=== PATIENT | female | born 1965 | race Caucasian/White ===

== ENCOUNTER 2022-02-17 07:37 | Emergency (ER) | payer OTHER ==
[~2022-02-17] VITALS: Ht 162.6 cm; Wt 51.3 kg
== END 2022-02-17 12:41 | disposition home or self-care (01) ==
LOC: ER 07:37
DX: M94.0 Chondrocostal junction syndrome [Tietze] (principal)

== ENCOUNTER 2023-01-26 03:42 | Emergency (ER) | payer OTHER ==
[~2023-01-26] VITALS: Ht 162.6 cm; Wt 53.1 kg
[2023-01-26] MEDS ORDERED: AMLODIPINE-OLM1 EAC2 PO (04:05)
[2023-01-26 06:46] LABS: HEMATOCRIT 40.5 % (36.0-45.00); HEMOGLOBIN 13.8 g/dL (12.0-15.00); MEAN CELL VOLUME 89.2 fL (80.00-100.00); MEAN CORPUSCULAR HEMOGLOBIN 30.4 pg (27.00-32.0); MEAN CORPUSCULAR HGB CONC 34.1 g/dl (32.0-36.0); PLATELET COUNT 210 K/uL (150-450); RED BLOOD COUNT 4.54 M/uL (4.00-6.00); RED CELL DISTRIBUTION WIDTH 15.5 % (11.5-14.5)
== END 2023-01-26 07:45 | disposition home or self-care (01) ==
LOC: ER 03:42
DX: J06.9 Acute upper respiratory infection, unspecified (principal); Z20.822 Contact with and (suspected) exposure to COVID-19